=== PATIENT | male | born 1985 | race Caucasian/White ===

== ENCOUNTER 2019-02-21 15:14 | Emergency (ER) | payer SELFPAY ==
[~2019-02-21] VITALS: Wt 79.0 kg
[2019-02-21 15:17] VITALS: BP 166/82; PULSE 100; RESP 18
== END 2019-02-21 16:02 | disposition left against medical advice (07) ==
LOC: E/R 15:14
DX: Z53.21 Procedure and treatment not carried out due to patient leaving prior to being seen by health care provider (principal)